=== PATIENT | male | born 1985 | race Caucasian/White ===

== ENCOUNTER → 2021-10-12 13:03 | Outpatient (CLI) | payer MEDICAID, SELFPAY ==
--- NOTE | 2021-10-12 14:10 | DI.MRI_ITS ---
Exam(s) MR BRAIN WO EXAM: MR BRAIN WO CLINICAL HISTORY: CHRONIC HEADACHE,G44.89 TECHNIQUE: Multiplanar multisequence MRI of the brain was performed. COMPARISON: No exams were available for comparison FINDINGS: CEREBRAL PARENCHYMA: There is no evidence of intracranial hemorrhage, mass effect, or shift of midline structures. There are no extra-axial fluid collections. Ventricles are not enlarged or shifted. There is no significant focal signal abnormality in the cerebellar hemispheres nor within the julieta, m idbrain, and thalami. There is no abnormal signal abnormality in the periventricular white matter. There is no significant focal signal abnormality evident on diffusion imaging to suggest acute ischem ic event. PITUITARY GLAND: No mass nor parasellar abnormality. No obvious abnormality in the cavernous sinuses. FLOW VOIDS: The expected flow void are noted. No evidence of obvious aneurysm nor obvious vascular ma lformation. PARANASAL SINUSES: There is minimal mucosal thickening noted in the medial wall of the right maxillar y sinus, not associated with fluid level therein. ORBITS: No obvious findings. IMPRESSION: No significant intracranial findings on this noninfused MRI scan of the brain. DATA REPOSITORY:
== END ==
PROVIDERS: Visit Provider Family Medicine
DX: G44.89 Other headache syndrome (principal)
CPT/HCPCS: 70551

== ENCOUNTER 2025-02-21 08:23 | Day surgery (SDC) | payer MEDICAID, SELFPAY ==
[2025-02-21 08:54] VITALS: BP 121/78; PULSE 97; RESP 16; TEMP 36.6; O2SAT 98
[2025-02-21] MEDS: Lactated Ringers 1,000 ML 80 ML IV (09:03)
--- NOTE | 2025-02-21 09:52 | ANES.PREOP_ITS ---
General Info Date of Service Date Performed: 02/21/25 Height: 5 ft 10 in Weight: 95.5 kg Body Mass Index (BMI): 30.2 Surgical Procedure: Operation Date: 02/21/25 10:35 Proposed Procedure Side Surgeon p Colonoscopy/Gastroscopy Cathy Lopez MD Meds Allergies and Home Medications Allergies Allergy/AdvReac Type Severity Reaction Status Date / Time potato Allergy Severe Swelling/Ed Verified 02/19/25 10:09 ronny peanut Allergy Mild Nausea Verified 01/27/25 11:42 Home Medication ?Medication ?Instructions ?Recorded omeprazole 20 mg capsule,delayed 20 mg PO DAILY release bisacodyl 5 mg tablet,delayed 5 mg PO ONCE Colonoscopy Bowel 01/27/25 release Prep #8 tabs candesartan 4 mg tablet 8 mg PO DAILY 01/27/25 polyethylene glycol 3350 17 238 g PO ONCE #238 grams 0 01/27/25 gram/dose oral powder Current Visit Medications: Current Medications Generic Name Dose Route Start Last Admin Trade Name Freq PRN Reason Stop Dose Admin Ringer's Solution 1,000 mls @ 80 mls/hr 02/21/25 06:00 02/21/25 09:03 IV 02/21/25 23:59 80 mls/hr INFUSION STEPHANIE Administration IV Miscellaneous Supplies 1 each 02/21/25 06:00 Iv Access IV 02/21/25 23:59 DIRECTED STEPHANIE Sodium Chloride 0 ml 02/21/25 06:00 Normal Saline Flush 10 Ml Syr IV 02/21/25 23:59 PRN PRN Sodium Chloride 0 ml 02/21/25 06:00 Normal Saline 10 Ml Vial IJ 02/21/25 23:59 DIRECTED PRN Sterile Water 0 ml 02/21/25 06:00 Water,Injection,Sterile 10 Ml Vial IJ 02/21/25 23:59 DIRECTED PRN PFSH Active Problems Active Problems: Problem Status Onset Code Dysphagia Acute R13.10 BRBPR (bright red blood per rectum) Acute K62.5 Bile acid esophageal reflux Acute K21.9 Patellofemoral syndrome of right knee Acute M22.2X1 Postconcussion syndrome Acute F07.81 Kyphosis deformity of spine Acute M40.209 Right knee pain Acute M25.561 Irritable bowel syndrome Chronic K58.9 Insomnia Acute G47.00 Fibromyalgia Acute M79.7 Chronic post-traumatic stress disorder (PTSD) Acute F43.12 Black stool Acute K92.1 Anxiety Chronic F41.9 Medical History Medical History Tubular adenoma of colon (~07/26/22) Surgical History Surgical History History of colonoscopy with polypectomy (~07/26/22) [facility] Tobacco Smoking/Tobacco Use Status: Never Alcohol Alcohol Intake: never Substance Use Substance use: Never Substance use type: does not use Vital Signs and Lab Results Vital Signs Most Recent Vital Signs in EMR: Most Recent Vital Signs Temp Pulse Resp BP Pulse Ox 36.6 C 97 H 16 121/78 98 02/21/25 08:54 02/21/25 08:54 02/21/25 08:54 02/21/25 08:54 02/21/25 08:54 Anesthesia Assessment and Plan Anesthesia History Personal History: No History of Anesthesia Complications Family History: No Family History of Anesthesia Complications Exercise Tolerance Exercise Tolerance: Metabolic Equivalents>4 Pertinent Negatives Pertinent Negatives: No Symptoms of GERD (rx) Cardiac & Pulmonary Exam Cardiac Exam: Normal S1/S2 Heart Sounds Pulmonary Exam: Clear Bilateral Breath Sounds Implantable Cardiac Device Does patient have a Pacemaker or an ICD?: No Airway Exam Known Difficult Airway: No Mallampati Class: 2 Mouth Opening: Normal (> 3cm) Thyromental Distance: Greater than 3 cm Neck Range of Motion: Full ROM Neck Circumference: Normal Teeth Condition: Edentulous (upper) ASA Classification ASA Score: ASA 2 Emergency Case?: No NPO Status NPO Status: NPO Clears >2 hours, Solids >8 hours Anesthesia Plan Resuscitation Status: Full Code Anesthesia Technique: General Anesthesia Airway Planned: Natural Airway Monitors Used: Standard Monitors
[2025-02-21 09:53] VITALS: BMI 30.2
--- NOTE | 2025-02-21 10:16 | BOWEL_PTH ---
PATIENT: Josué Alvarado LOC: [facility] U#:[id number] AGE/SX: 39/M ROOM: RE02/21/[address]: Cathy Lopez : 1985 BED: DIS: 02/21/2025 SPEC #: [id number] RECD: 02/21/25 11:51 STATUS: RUSSELL RE #: [id number] CAROLYNN: 02/21/25 10:[address]: Cathy Lopez DEPT: Surgical Specimen RECD BY: Marla Ornelas ENTERED: 02/21/25 11:56 SP TYPE: Bowel OTHR DR: Hadley Freitas Tissues: 1 - BIOPSY BOWEL 2 - STOMACH BIOPSY 3 - ESOPHAGUS BIOPSY 4 - STOMACH BIOPSY Procedures: GROSS AND MICRO LEVEL 4 Comments: [id number]
--- NOTE | 2025-02-21 11:00 | W.PM.DSUDISC ---
Date of service: 02/21/25 Discharge Plan Disposition Patient Disposition: Home Condition: Good Discharge Details Reason For Visit: Dysphagia, Bright red blood per rectum Attending Provider: Cathy Lopez Primary Care Provider: Hadley Freitas Home Meds and New Rx's Prescriptions: Continued candesartan 4 mg tablet 8 mg PO DAILY omeprazole 20 mg capsule,delayed release(DR/EC) 20 mg PO DAILY Discontinued polyethylene glycol 3350 17 gram/dose powder 238 g PO ONCE Qty: 238 0RF Rx Instructions: For Colonoscopy bowel prep, as directed by office bisacodyl 5 mg tablet,delayed release (DR/EC) 5 mg PO ONCE Qty: 8 0RF Rx Instructions: Per Colonoscopy bowel prep instructions Discharge Instructions Instructions: Anal fissure Additional Instructions: Your upper endoscopy and colonoscopy went well today. On your upper endoscopy you had evidence of gastric polyps. Some routine biopsies were obtained. On your colonoscopy you had evidence of an anal fissure. We will follow up in clinic regarding next steps in management. Please contact the general surgery office if you have further questions or concerns. 1. If tolerated, consume a soft, low fiber diet for 1-2 days. 2. Do not drive, drink alcohol, operate machinery, make critical decisions, or do activities that require coordination or balance for 24 hours. 3. Because air was put into your colon during the procedure, expelling air from your rectum (passing gas or farting) is normal. 4. You may not have a bowel movement for 1-3 days because of the colonoscopy prep. This is normal. 5. Go directly to the emergency room if you notice any of the following: Develop chills (warm to touch), or if you have a thermometer and your temperature is above 101 Difficulty breathing or difficultly swallowing Persistent vomiting Severe abdominal pain, other than gas cramps Severe chest pain Black, tarry stools Any bleeding ? exceeding one tablespoon 6. Call your physician if the site where your intravenous was started becomes red, swollen, painful, and warm to touch. 7. Your physician has reviewed your pre-procedure medications. Please continue to take those medications as previously ordered. You will be given specific information/education regarding any changes to your medications before leaving. Stand Alone Forms: Anesthesia Discharge Sanam Rodgers (NOEL) Activity:: Activity as Tolerated Diet:: As Tolerated Discharge Orders Discharge Orders: Discharge Order (Routine); Ordered 02/21/25 Ordered By: Cathy Lopez
[2025-02-21 11:01] VITALS: BP 91/67; PULSE 66; RESP 16; TEMP 36.2; O2SAT 94
--- NOTE | 2025-02-21 11:04 | W.PM.ENDDOP ---
Date of service: 02/21/25 Time of Service: 11:04 Endoscopy Report DATE OF PROCEDURE: 02/21/25 PRE-OP DIAGNOSIS: Dysphagia POST-OP DIAGNOSIS: same PROCEDURE: Upper endoscopy with biopsy and polypectomy SURGEON: Cathy Lopez ANESTHESIA TYPE: General:No Airway ESTIMATED BLOOD LOSS: 2 PATHOLOGY: other (Duodenum, antrum, gastric polyp, GE junction ) COMPLICATIONS: None DISPOSITION: PACU INDICATIONS: Patient is a 39 yo male who presents with dysphagia. FINDINGS: Evidence of gastric polyps with polypectomy performed. Cold forcep biopsy of duodenum, antrum and GE junction. PROCEDURE DESCRIPTION: After adequate sedation, the upper endoscope was inserted and advanced in the duodenum under direct visualization. The scope was withdrawn and the mucosa inspected. The duodenum appeared normal and a biopsy was performed with cold forcep biopsy. The stomach was normal with no evidence of ulcerations or erosions. ?The antrum area was biopsied and also checked for H. pylori.? There was evidence of gastric polyps and a polypectomy was performed. Retroflexion view in the stomach was normal. At the lower esophagus Z line area, this was inspected and noted to be normal. A cold forcep biopsy of the GE junction was performed. No evidence of [place]?s esophagus or strictures. Otherwise, the esophagus was normal. The scope was completely withdrawn from the patient. The patient tolerated the procedure well with no immediate complications.
--- NOTE | 2025-02-21 11:07 | COLE_ITS ---
Date of service: 02/21/25 Time of Service: 11:07 Colonoscopy Report Date of procedure: 02/21/25 Pre-op diagnosis general: Bright red blood per rectum Post-op diagnosis procedure note: other (Anal fissure. ) Procedure: Colonoscopy performed to ascending colon. Surgeon: Cathy Lopez Anesthesia Type: General:No Airway Estimated blood loss (mL): 1 Pathology: none sent Complications: None Disposition: PACU Indications: Patient is a 39 yo male who presented with bright red blood per rectum and longstanding history of constipation. Prep: Miralax/Dulcolax Procedure Start Time: 10:14 Procedure End Time: 10:54 Findings: Redundant tortuous colon. Colonoscopy performed to ascending colon. Evidence of posterior anal fissure on exam. Procedure Description: Informed consent was obtained. The patient was taken to the endoscopy suite and placed in the left lateral decubitus position. After adequate intravenous sedation, digital rectal exam was performed. There was evidence of a posterior anal fissure on exam. A colonoscope was inserted into the rectum and negotiated to the ascending colon with difficulty due to tortuous colon and significant looping. Position changes and abdominal pressure were attempted without further success. The entire colonic mucosa was then carefully circumferentially inspected upon slow withdrawal of the scope. The ascending, transverse, and descending colon were all normal. Retroflexion in the rectum was unremarkable. The patient tolerated the procedure well with no complications. Postoperatively, the patient was transferred to the recovery room in stable condition. New [place] Bowel Prep New [place]side Bowel Prep Right Colon: 3 Left Colon: 3 Transverse Colon: 3 Total Score: 9
--- NOTE | 2025-02-21 11:11 | W.ANESPOSTOP ---
Postoperative Evaluation Date, Time and Location Date Performed: 02/21/25 Time Performed: 11:11 Patient Location: Day Surgery Unit Vital Signs Most Recent Imported Vital Signs: Most Recent Vital Signs Temp Pulse Resp BP Pulse Ox 36.2 C L 66 16 91/67 L 94 02/21/25 11:01 02/21/25 11:01 02/21/25 11:01 02/21/25 11:01 02/21/25 11:01 Pain Score Most Recent Pain Score: Most Recent Pain Score Pain Level 0 02/21/25 11:01 Assessment Mental Status: Awake (Alert & Oriented to Patient Baseline) Airway and Respiratory Function: Patent airway with normal (patient baseline) respiratory exam Cardiovascular Function: Hemodynamically Stable Hydration Status: Adequately Hydrated Nausea & Vomiting: No Nausea or Vomiting Pain: Pt. Denies Any Pain Peripheral Nerve Block: Patient did not receive a nerve block
[2025-02-21 11:35] VITALS: BP 104/65; PULSE 61; RESP 16; TEMP 36.2; O2SAT 100
== END 2025-02-21 11:45 | disposition home or self-care (01) ==
PROVIDERS: PCP Family Medicine; Visit Provider Student in an Organized Health Care Education/Training Program
PROC: (CPT 43239; principal; 2025-02-21 10:30)
DX: R13.10 Dysphagia, unspecified (principal); K31.7 Polyp of stomach and duodenum; K60.2 Anal fissure, unspecified; K62.5 Hemorrhage of anus and rectum; K56.2 Volvulus; K31.89 Other diseases of stomach and duodenum
CPT/HCPCS: 43239; 45378; 88305; J2003; J2704